=== PATIENT | female | born 1990 | race Caucasian/White ===

== ENCOUNTER 2017-08-10 10:16 | Emergency (ER) | payer MEDICAID ==
[~2017-08-10] VITALS: Ht 162.6 cm; Wt 100.0 kg
[~2017-08-10 10:16] MED LIST: SPRI28TA PO
[2017-08-10 10:17] VITALS: BP 153/102; PULSE 113; RESP 14; TEMP 97.8; O2SAT 100
--- NOTE | 2017-08-10 11:03 | PD ---
HPI Chief Complaint: High Value Associate Problem/Complaint Time Seen by Provider: 11:02 Travel History International Travel<30 days: No Contact w/Intl Traveler<30days: No Traveled to known affect area: No PFSH Past Medical History ?: Not LMP: 08/10/17 Social History Alcohol Use: No Tobacco Use: Yes Allergies-Medications (Allergen,Severity, Reaction): Coded Allergies: No Known Allergies (Unverified Adverse Reaction, Unknown, 08/10/17) Reported Meds & Prescriptions Reported Meds & Active Scripts Active Diflucan (Fluconazole) 150 Mg Tab 150 Mg PO ONCE Sprintec 28 (Norgestimate-Ethinyl Estradiol) 0.25-35 mg-Mcg Tab 1 Tab PO DAILY Data Data Last Documented VS Vital Signs Date Time Temp Pulse Resp B/P (MAP) Pulse Ox O2 Delivery O2 Flow Rate FiO2 08/10/17 12:47 08/10/17 11:07 98.1 91 17 100 Room Air Orders Orders Gc And Chlamydia Pcr (08/10/17 11:14) Wet Prep Profile (08/10/17 11:14) Urinalysis - C+S If Indicated (08/10/17 11:14) Ed Urine Pregnancytest Poc (08/10/17 11:14) Ed Discharge Order (08/10/17 12:36) Labs Laboratory Tests Test 08/10/17 11:20 Urine Color YELLOW Urine Turbidity HAZY Urine pH 7.0 Urine Specific [place] 1.024 Urine Protein TRACE mg/dL Urine Glucose (UA) NEG mg/dL Urine Ketones NEG mg/dL Urine Occult Blood LARGE Urine Nitrite NEG Urine Bilirubin NEG Urine Urobilinogen LESS THAN 2.0 MG/DL Urine Leukocyte Esterase SMALL Urine RBC 70 /hpf Urine WBC 5 /hpf Urine Squamous Epithelial Cells 2 /hpf Urine Bacteria RARE /hpf Urine Mucus FEW /lpf Microscopic Urinalysis Comment CULT NOT INDICATED Clue Cells (Wet Prep) NONE SEEN Vaginal Trichomonas (Wet Prep) NONE SEEN Vaginal Yeast (Wet Prep) NONE SEEN Chlamydia trachomatis DNA (PCR) NOT DETECTED Neisseria gonorrhoeae DNA (PCR) NOT DETECTED MDM Scripts Fluconazole (Diflucan) 150 Mg Tab 150 MG PO ONCE for Infection, #2 TAB 0 Refills Prov: Lilliana Levine DO 08/10/17 Jean Marie Wilson Aug 10, 2017 11:02
[2017-08-10 11:07] VITALS: BP 147/90; PULSE 91; RESP 17; TEMP 98.1; O2SAT 100
--- NOTE | 2017-08-10 11:29 | PD ---
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 Patient reports that for the past 3 days, she has been self medicating with [id number] medications for her yeast infection. Patient reports that she recently put an apple cider compress on her vagina to help with her presumed yeast infection, reports that today, her labia's were swollen. Patient reports that she tried calling her yardage estimator but cannot get an appointment for the past 3 months. Patient reports that she is sexually active , reports no history of STDs in the past. Patient with no abdominal pain, no nausea or vomiting, patient reports that she currently is on her period, patient complains of vaginal pruritus with thick white vaginal discharge. PFSH Past Medical History Medical History: Denies Significant Hx Influenza Vaccination: No ?: Not LMP: 08/10/17 : 1 Past Surgical History Section: Yes Social History Alcohol Use: Yes (OCC) Tobacco Use: No Substance Use: No Allergies-Medications (Allergen,Severity, Reaction): Coded Allergies: No Known Allergies (Unverified Adverse Reaction, Unknown, 08/10/17) Reported Meds & Prescriptions Reported Meds & Active Scripts Active Sprintec 28 (Norgestimate-Ethinyl Estradiol) 0.25-35 mg-Mcg Tab 1 Tab PO DAILY Review of Systems General / Constitutional: No: Fever Eyes: No: Visual changes HENT: No: Headaches Cardiovascular: No: Chest Pain or Discomfort Respiratory: No: Shortness of Breath Gastrointestinal: No: Abdominal Pain Genitourinary: Positive: Discharge (thick white discharge), Vaginal Bleeding ( patient currently on her menstrual cycle), No: Dysuria, Pelvic Pain, Flank Pain Musculoskeletal: No: Pain Skin: No Rash Neurologic: No: Weakness Psychiatric: No: Depression Endocrine: No: Polydipsia Hematologic/Lymphatic: No: Easy Bruising Physical Exam Narrative GENERAL: NAD SKIN: Focused skin assessment warm/dry. HEAD: Atraumatic. Normocephalic. EYES: Pupils equal and round. No scleral icterus. No injection or drainage. ENT: No nasal bleeding or discharge. Mucous membranes pink and moist. NECK: Trachea midline. No JVD. CARDIOVASCULAR: Regular rate and rhythm. No murmur appreciated. RESPIRATORY: No accessory muscle use. Clear to auscultation. Breath sounds equal bilaterally. GASTROINTESTINAL: Abdomen soft, non-tender, nondistended. Hepatic and splenic margins not palpable. : Pelvic exam performed with RN at bedside, patient with no CMT or adnexal tenderness, patient with no gross discharge on exam, patient does have swollen labias MUSCULOSKELETAL: No obvious deformities. No clubbing. No cyanosis. No edema. NEUROLOGICAL: Awake and alert. No obvious cranial nerve deficits. Motor grossly within normal limits. Normal speech. PSYCHIATRIC: Appropriate mood and affect; insight and judgment normal. Data Data Last Documented VS Vital Signs Date Time Temp Pulse Resp B/P (MAP) Pulse Ox O2 Delivery O2 Flow Rate FiO2 08/10/17 11:07 98.1 91 17 147/90 (109) 100 Room Air Orders Orders Gc And Chlamydia Pcr (08/10/17 11:14) Wet Prep Profile (08/10/17 11:14) Urinalysis - C+S If Indicated (08/10/17 11:14) Ed Urine Pregnancytest Poc (08/10/17 11:14) Labs Laboratory Tests Test 08/10/17 11:20 Urine Color YELLOW Urine Turbidity HAZY Urine pH 7.0 Urine Specific [place] 1.024 Urine Protein TRACE mg/dL Urine Glucose (UA) NEG mg/dL Urine Ketones NEG mg/dL Urine Occult Blood LARGE Urine Nitrite NEG Urine Bilirubin NEG Urine Urobilinogen LESS THAN 2.0 MG/DL Urine Leukocyte Esterase SMALL Urine RBC 70 /hpf Urine WBC 5 /hpf Urine Squamous Epithelial Cells 2 /hpf Urine Bacteria RARE /hpf Urine Mucus FEW /lpf Microscopic Urinalysis Comment CULT NOT INDICATED Clue Cells (Wet Prep) NONE SEEN Vaginal Trichomonas (Wet Prep) NONE SEEN Vaginal Yeast (Wet Prep) NONE SEEN MDM Medical Decision Making Medical Screen Exam Complete: Yes Emergency Medical Condition: Yes Medical Record Reviewed: Yes Interpretation(s) Vital Signs Date Time Temp Pulse Resp B/P (MAP) Pulse Ox O2 Delivery O2 Flow Rate FiO2 08/10/17 11:07 98.1 91 17 147/90 (109) 100 Room Air 08/10/17 11:07 91 17 08/10/17 10:17 97.8 113 14 153/102 (119) 100 Differential Diagnosis cervicitis, yeast infection Narrative Course A pelvic exam was performed, samples for gonorrhea/ chlamydia obtained, patient does not wish to be treated for possible G/C, she will follow up with all cultures from today. Plan to treat for miller vaginitis. She will follow up with her yardage estimator and will return to ER as needed Laboratory Tests Test 08/10/17 11:20 Urine Color YELLOW (YELLW/STRAW) Urine Turbidity HAZY (CLEAR) Urine pH 7.0 (5.0-8.5) Urine Specific [place] 1.024 (1.002-1.035) Urine Protein TRACE mg/dL (NEG-TRACE) Urine Glucose (UA) NEG mg/dL (NEG) Urine Ketones NEG mg/dL (NEG) Urine Occult Blood LARGE (NEG) Urine Nitrite NEG (NEG) Urine Bilirubin NEG (NEG) Urine Urobilinogen LESS THAN 2.0 MG/DL (LESS Urine Leukocyte Esterase SMALL (NEG) Urine RBC 70 /hpf (0-3) Urine WBC 5 /hpf (0-5) Urine Squamous Epithelial Cells 2 /hpf (0-5) Urine Bacteria RARE /hpf (NONE) Urine Mucus FEW /lpf (OCC) Microscopic Urinalysis Comment CULT NOT INDICATED Clue Cells (Wet Prep) NONE SEEN (NONE) Vaginal Trichomonas (Wet Prep) NONE SEEN (NONE) Vaginal Yeast (Wet Prep) NONE SEEN (NONE) Diagnosis Primary Impression: Candidal vaginitis Patient Instructions: General Instructions Additional Instructions: Please follow-up with all cultures from today Please up with your flanging roll operator Please follow up with your primary care doctor in 2-3 days Return to the ER if symptoms worsen or progress Return to the ER as needed Med/Other Pt SpecificInfo: Prescription(s) given Scripts Fluconazole (Diflucan) 150 Mg Tab 150 MG PO ONCE for Infection, #2 TAB 0 Refills Prov: Lilliana Levine DO 08/10/17 Disposition: 01 DISCHARGE HOME Condition: Stable Lilliana Levine DO Aug 10, 2017 11:29
[2017-08-10 11:56] LABS: BACTERIA, URINE RARE /hpf; BLOOD, URINE LARGE (NEG); COMMENT (UR) CULT NOT INDICATED; CULTURE IF INDICATED CULT NOT INDICATED; GLUCOSE,URINE NEG (NEG); KETONE, URINE NEG (NEG); MUCUS URINE FEW /lpf (OCC); NITRITE,URINE NEG (NEG); SQUAMOUS EPITHELIAL CELL URINE 2 /hpf (0-5); URINE COLOR YELLOW (YELLW/STRAW)
[2017-08-10] MEDS ORDERED: DIFL150T PO (12:34)
[2017-08-10 15:55] LABS: CHLAMYDIA PCR NOT DETECTED (NOT DETECT); NEISSERIA PCR NOT DETECTED (NOT DETECT)
== END 2017-08-10 12:48 | disposition home or self-care (01) ==
LOC: NEPD 10:16
DX: B37.3 Candidiasis of vulva and vagina (principal)
CPT/HCPCS: 81001; 84703; 87210; 87491; 87591; 99284